=== PATIENT | male | born 1965 | race Caucasian/White ===

== ENCOUNTER 2017-09-28 06:04 | Day surgery (SDC) | payer OTHER ==
[~2017-09-28] VITALS: Ht 172.7 cm; Wt 124.7 kg
[2017-09-28] MEDS ORDERED: BLOOD GLUCOSE MONITORING 1 DEV DEV FS ONE (08:00)
[2017-09-28] MEDS ORDERED: LIDOCAINE 2% 100 MG/5 ML UJET TP ONE (09:23)
[2017-09-28] MEDS ORDERED: METF1000 PO (09:31)
[2017-09-28] MEDS ORDERED: [UNRECOGNIZED DRUG - CODE] PO (09:31)
[2017-09-28] MEDS ORDERED: GLIP10TA3 PO (09:31)
[2017-09-28] MEDS ORDERED: HYDR-3293 PO (09:31)
[2017-09-28] MEDS ORDERED: MIDAZOLAM 2 MG/2 ML VIAL ONE (09:59)
[2017-09-28] MEDS ORDERED: fentaNYL 0.05 MG/ML VIAL ONE (09:59)
[2017-09-28] MEDS ORDERED: diphenhydrAMINE 50 MG/ML VIAL ONE (09:59)
== END 2017-09-28 11:34 | disposition home or self-care (01) ==
LOC: MDS 06:04 → MMU 06:05 → MDS 11:34
PROVIDERS: ATTEND Internal Medicine Gastroenterology
DX: Z12.11 Encounter for screening for malignant neoplasm of colon (principal); K63.5 Polyp of colon; I10 Essential (primary) hypertension; E11.9 Type 2 diabetes mellitus without complications; E66.01 Morbid (severe) obesity due to excess calories; F41.9 Anxiety disorder, unspecified; E78.5 Hyperlipidemia, unspecified; M19.90 Unspecified osteoarthritis, unspecified site; Z79.899 Other long term (current) drug therapy; Z79.84 Long term (current) use of oral hypoglycemic drugs
CPT/HCPCS: 82948; 88305; J1200; J2250; J3010